=== PATIENT | female | born 1970 | race Caucasian/White ===

== ENCOUNTER 2016-09-11 18:36 | Emergency (ER) | payer BC, OTHER ==
--- NOTE | 2016-09-11 19:12 | ER Document Report ---
ED Medical Screen (RME) - General Chief Complaint: Neck Swelling Stated Complaint: SORE THROAT Time seen by provider: 19:08 Mode of Arrival: Ambulatory Information source: Patient Notes: 45-year-old female complaining of an enlarged lymph node on the left which is tender. She was sent by urgent care. She is taking doxycycline for tightness. Normally healthy. No history of cancer or lymphatic cancer. Left anterior cervical lymph node which is not hot, not as enlarged right anterior cervical lymph node as well. Vitals are stable. Influenza and strep test 2 hours ago when she was in urgent care. HX Luana's thyroiditis taking Synthroid. I have greeted and performed a rapid initial assessment of this patient. A comprehensive ED assessment, evaluation of the patient, analysis of test results , and completion of the medical decision making process will be contacted by additional ED providers. TRAVEL OUTSIDE OF THE [place] IN LAST 30 DAYS: No - Related Data Allergies/Adverse Reactions: azithromycin [From Zithromax] Allergy (Verified 10/26/15 21:40) Sulfa (Sulfonamide Antibiotics) Allergy (Verified 10/26/15 21:40) Physical Exam - Vital signs Vitals: Temp Pulse Resp BP Pulse Ox 98.1 F 80 16 121/56 L 100 09/11/16 19:02 09/11/16 19:02 09/11/16 19:02 09/11/16 19:02 09/11/16 19:02 Course - Vital Signs Vital signs: Temp Pulse Resp BP Pulse Ox 98.1 F 80 16 121/56 L 100 09/11/16 19:02 09/11/16 19:02 09/11/16 19:02 09/11/16 19:02 09/11/16 19:02
[2016-09-11 20:14] LABS: ABSOLUTE EOSINOPHILS # (AUTO) 0.1 10^3/uL (0.0-0.6); ABSOLUTE LYMPHOCYTES (AUTO) 1.2 10^3/uL (0.5-4.7); ABSOLUTE MONOCYTES (AUTO) 0.5 10^3/uL (0.1-1.4); ABSOLUTE NEUT (AUTO) 2.9 10^3/uL (1.7-8.2); BASOPHILS % (AUTO) 0.3 % (0-2); EOSINOPHILS % (AUTO) 1.7 % (0-6); HEMATOCRIT 40.5 % (36.0-47.0); HGB HCT DIFFERENCE 1.5; LYMPHOCYTES % (AUTO) 25.3 % (13-45); MEAN CORPUSCULAR HEMOGLOBIN 28.5 pg (27.0-33.4); MEAN CORPUSCULAR HGB CONC 34.6 g/dL (32.0-36.0); MEAN CORPUSCULAR VOLUME 83 fl (80-97); MONOCYTES % (AUTO) 11.1 % (3-13); RED BLOOD COUNT 4.91 10^6/uL (3.72-5.28); RED CELL DISTRIBUTION WIDTH 12.8 % (11.5-14.0); SEGMENTED NEUTROPHILS % (AUTO) 61.6 % (42-78); WHITE BLOOD COUNT 4.6 10^3/uL (4.0-10.5)
--- NOTE | 2016-09-12 00:39 | ER Document Report ---
ED General - General Mode of Arrival: Ambulatory Information source: Patient TRAVEL OUTSIDE OF THE [place] IN LAST 30 DAYS: No - HPI Patient complains to provider of: swollen neck Associated symptoms: Other - See above <DURGA FERNÁNDEZ - Last Filed: 09/12/16 02:57> <JEWELS GARCIA - Last Filed: 09/12/16 06:02> - General Chief Complaint: Neck Swelling Stated Complaint: neck swelling Notes: Patient is a 45 year old female who presents to the emergency department complaining of painful swelling in her neck bilaterally. Patient reports that her lymph nodes began to harden and become large and tender yesterday morning. Patient also complains of a burning in her mouth. Patient states that she was diagnosed with bronchitis a week ago and she had a fever that went away but still complains of cough and nasal congestion. Patient denies sore throat. Patient reports she is still taking doxycycline and completed Medrol after her diagnosis. (DURGA FERNÁNDEZ) - Related Data Allergies/Adverse Reactions: azithromycin [From Zithromax] Allergy (Verified 10/26/15 21:40) Sulfa (Sulfonamide Antibiotics) Allergy (Verified 10/26/15 21:40) Past Medical History - General Information source: Patient - Social History Smoking Status: Unknown if Ever Smoked Family History: Reviewed & Not Pertinent Patient has suicidal ideation: No Patient has homicidal ideation: No Pulmonary Medical History: Reports: Hx Asthma, Hx Bronchitis Past Surgical History: Reports: Hx Section, Hx Hysterectomy <DURGA FERNÁNDEZ - Last Filed: 09/12/16 02:57> Review of Systems - Review of Systems Constitutional: No symptoms reported EENT: See HPI, Nose congestion, Other - Neck pain, swollen lymph nodes. denies : Throat pain Cardiovascular: No symptoms reported Respiratory: See HPI, Cough Gastrointestinal: No symptoms reported Genitourinary: No symptoms reported Female Genitourinary: No symptoms reported Musculoskeletal: No symptoms reported Skin: No symptoms reported Hematologic/Lymphatic: No symptoms reported Neurological/Psychological: No symptoms reported -: Yes All other systems reviewed and negative <DURGA FERNÁNDEZ - Last Filed: 09/12/16 02:57> Physical Exam - Vital signs Interpretation: Normal - General General appearance: Appears well, Alert - HEENT Head: Normocephalic, Atraumatic Pharynx: No: Erythema, Peritonsillar abscess Neck: Lymphadenopathy, Other - No tenderness to palpation and submandular area is soft - Respiratory Respiratory status: No respiratory distress Chest status: Nontender Breath sounds: Normal Chest palpation: Normal - Cardiovascular Rhythm: Regular Heart sounds: Normal auscultation Murmur: No - Abdominal Inspection: Normal Distension: No distension Bowel sounds: Normal Tenderness: Nontender Organomegaly: No organomegaly - Back Back: Normal, Nontender - Extremities General upper extremity: Normal inspection, Normal ROM, Normal strength General lower extremity: Normal inspection, Normal ROM, Normal strength, Normal weight bearing - Neurological Neuro grossly intact: Yes Cognition: Normal Orientation: AAOx4 [place] Coma Scale Eye Opening: Spontaneous [place] Coma Scale Verbal: Oriented [place] Coma Scale Motor: Obeys Commands [place] Coma Scale Total: 15 Speech: Normal Motor strength normal: LUE, RUE, LLE, RLE - Psychological Associated symptoms: Normal affect, Normal mood - Skin Skin Temperature: Warm Skin Moisture: Dry Skin Color: Normal <DURGA FERNÁNDEZ - Last Filed: 09/12/16 02:57> Course - Laboratory Result Diagrams: 09/11/16 19:21 <DURGA FERNÁNDEZ - Last Filed: 09/12/16 02:57> - Laboratory Result Diagrams: 09/11/16 19:21 <JEWELS GARCIA - Last Filed: 09/12/16 06:02> - Re-evaluation Re-evalutation: 09/12/16 Patient is a 45-year-old female who comes in with anterior neck swelling and cervical lymphadenopathy. Patient is currently on doxycycline which she does not think is working would like to be on Augmentin instead. Vitals are stable. No evidence for pneumonia. No fever. Stable for discharge home. Follow-up with PMD. (JEWELS GARCIA) - Vital Signs Vital signs: Temp Pulse Resp BP Pulse Ox 97.5 F 74 16 105/53 L 100 09/12/16 01:49 09/12/16 01:49 09/12/16 01:49 09/12/16 01:49 09/12/16 01:49 (DURGA FERNÁNDEZ) (JEWELS GARCIA) Discharge <DURGA FERNÁNDEZ - Last Filed: 09/12/16 02:57> <JEWELS GARCIA - Last Filed: 09/12/16 06:02> - Discharge Clinical Impression: Cervical lymphadenopathy Condition: Stable Disposition: HOME, SELF-CARE Instructions: Lymphadenopathy ([facility]) Additional Instructions: Please follow-up with your doctor this week. Prescriptions: Amox Tr/Potassium Clavulanate [Augmentin 875-125 Tablet] 1 tab PO BID 10 Days Forms: Return to Work Scribe Attestation: 09/12/16 06:02 I personally performed the services described in the documentation, reviewed and edited the documentation which was dictated to the scribe in my presence, and it accurately records my words and actions. (JEWELS GARCIA) Scribe Documentation - Scribe Written by Dilshad:: dilshad Talbert, 09/12/16, 0150 acting as scribe for :: Suzanne <DURGA EFRNÁNDEZ - Last Filed: 09/12/16 02:57>
[2016-09-12] MEDS ORDERED: AMOXICILLIN TR/POT CLAVULANATE 500-125 MG TAB PO ONE (00:40)
[2016-09-12 01:57] VITALS: BP 105/53
== END 2016-09-12 01:58 | disposition home or self-care (01) ==
LOC: ER 18:36
DX: R59.1 Generalized enlarged lymph nodes (principal); R22.1 Localized swelling, mass and lump, neck; M54.2 Cervicalgia
CPT/HCPCS: 36415; 85025; 86308; 99283